=== PATIENT | female | born 1975 ===

== ENCOUNTER 2019-02-23 11:19 | Outpatient (CLI) | payer MEDICAID | END 2019-02-23 11:20 | disposition home or self-care (01) | LOC: C.MAMMO 11:20 | DX: Z12.31 Encounter for screening mammogram for malignant neoplasm of breast (principal) ==

== ENCOUNTER 2019-03-22 10:37 | Outpatient (CLI) | payer MEDICAID | END 2019-03-22 10:38 | disposition home or self-care (01) | LOC: C.MAMMO 10:37 | DX: Z12.31 Encounter for screening mammogram for malignant neoplasm of breast (principal); R92.2 Inconclusive mammogram; N64.89 Other specified disorders of breast ==